=== PATIENT | female | born 1940 | race American Indian/Alaskan Native ===

== ENCOUNTER 2017-07-01 10:10 | Outpatient (CLI) | payer MEDICARE | END 2017-07-01 10:11 | disposition home or self-care (01) | LOC: LABHHL 10:10 | PROVIDERS: ATTEND Surgery | DX: C50.912 Malignant neoplasm of unspecified site of left female breast (principal) | CPT/HCPCS: 88305; 88342; 88361 ==

== ENCOUNTER 2017-07-21 11:19 | Outpatient (CLI) | payer MEDICARE ==
--- NOTE | 2017-07-21 15:31 | PET Report ---
PET SB TO MT INITIAL: HISTORY: Left breast cancer, initial staging. TECHNIQUE: 16.1 millicuries F-18 FDG was administered intravenously. Noncontrast CT images and PET images were obtained from the skull base to the proximal thighs. Fused images were reviewed on a workstation. The patient's blood glucose level measured 93. COMPARISON: None. FINDINGS: BRAIN: physiologic FDG uptake in the imaged brain. NECK: physiologic FDG uptake. CHEST WALL: An approximate 3.2 cm mass is identified in the lateral left breast with Max SUV measuring 11.6. MEDIASTINUM: physiologic FDG uptake. LUNGS: physiologic FDG uptake. PLEURA/PERICARDIUM: physiologic FDG uptake. THORACIC LYMPH NODES: There is a solitary enlarged left axillary lymph node measuring 2.8 x 1.9 cm with Max SUV measuring 11.6. HEPATOBILIARY: physiologic FDG uptake. Mean liver SUV measures 4.4. PANCREAS: physiologic FDG uptake. SPLEEN: physiologic FDG uptake. ADRENAL GLANDS: physiologic FDG uptake. KIDNEYS/RENAL COLLECTING SYSTEMS: physiologic FDG uptake. BOWEL/MESENTERY: physiologic FDG uptake. PELVIC VISCERA: physiologic FDG uptake. ABDOMINAL/PELVIC LYMPH NODES: physiologic FDG uptake. MUSCULOSKELETAL: physiologic FDG uptake. IMPRESSION: 3.2 cm hypermetabolic left breast mass and a solitary enlarged hypermetabolic left axillary lymph node as described. No additional areas of abnormal metabolic activity are identified.
== END 2017-07-21 11:20 | disposition home or self-care (01) ==
LOC: PET 11:19
PROVIDERS: ATTEND Surgery
DX: C50.412 Malignant neoplasm of upper-outer quadrant of left female breast (principal); R59.9 Enlarged lymph nodes, unspecified; J18.9 Pneumonia, unspecified organism; I10 Essential (primary) hypertension; Z79.899 Other long term (current) drug therapy
CPT/HCPCS: 78815; 82962; A9552

== ENCOUNTER 2017-07-27 09:24 | Outpatient (CLI) | payer MEDICARE ==
[2017-07-27] MEDS ORDERED: FLUSH HEPARIN IV ONE ×2 (10:12→10:29)
--- NOTE | 2017-07-28 07:56 | Nuclear Medicine Report ---
NUCLEAR MEDICINE MUGA GATED CARDIAC SCAN History: Malignant neoplasm of left breast. Findings: First pass technique was utilized. Heart rate measures 52-53 beats per minutes. The planar images demonstrate no evidence for a focal wall motion abnormality. The cardiac ejection fraction measures 75-80%. IMPRESSION: The cardiac ejection fraction measures 75-80 %.
== END 2017-07-27 09:25 | disposition home or self-care (01) ==
LOC: NM 09:24
PROVIDERS: ATTEND Internal Medicine Hematology & Oncology
DX: C50.412 Malignant neoplasm of upper-outer quadrant of left female breast (principal); I10 Essential (primary) hypertension; F32.9 Major depressive disorder, single episode, unspecified; Z79.899 Other long term (current) drug therapy
CPT/HCPCS: 78472; A9560; J1642

== ENCOUNTER 2017-08-12 14:19 | Outpatient (CLI) | payer MEDICARE ==
--- NOTE | 2017-08-15 16:12 | Magnetic Resonance Report ---
BILATERAL BREAST MRI WITHOUT AND WITH CONTRAST: 08/12/17 14:19:00 CLINICAL: Newly diagnosed left breast cancer. Status post left ultrasound breast biopsy on 07/01/17 with pathologic diagnosis of invasive carcinoma NOS, Selena grade III. ER/VT negative and HER-2 positive with Ki-67 of 76%. Needle biopsy of a left axillary lymph node on the same day was negative for malignancy. COMPARISON:06/30/17 bilateral mammogram.. TECHNIQUE: Axial 1.0-mm T1 without, axial high resolution 2.0-mm T2 and axial 1.0-mm dynamic Vibrant high-resolution postcontrast T1 fat saturation sequences on a 1.5 Marcela magnet. The examination was performed with an 8 channel dedicated [place] breast coil. Post processing with CAD and subtraction was performed on an [employer] workstation. 19.0 cc of Multihance was injected without incident via a right antecubital vein 22-gauge INT for the contrast portion of the exam. Consent was obtained prior to the administration of the contrast. FINDINGS: Right: Minimal background parenchymal enhancement. No mass or suspicious enhancement. No suspicious right axillary or right internal mammary lymph nodes. Left: Minimal background parenchymal enhancement. The known cancer is an irregular enhancing mass in the upper-outer quadrant 11.5 cm from the nipple measuring 3.1 x 3.0 x 2.6 cm. It demonstrates heterogeneous enhancement with mixed kinetics, 260% peak enhancement and 1% type III washout. Lesion 2 is an oval relatively smooth enhancing mass in the upper-outer quadrant 5.4 cm from the nipple and 8 cm from the known cancer. It measures 4.8 x 3.8 x 3.3 mm and demonstrates heterogeneous enhancement with mixed kinetics, 181% peak enhancement and 17% type III washout. No other mass or suspicious enhancement. A 3.0 cm x 1.7 cm level I axillary lymph node correlates with the biopsy lymph node. The cortex measures 4 mm in maximum thickness. IMPRESSION: 1. A 3.1 cm in known left breast cancer and a second suspicious lesion in the same quadrant 8 cm posterior to the nipple. 2. No MRI correlate for highly suspicious segmental calcifications extending from the known cancer toward the nipple for it least 11 cm. These mammographic calcifications are highly suspicious for DCIS. 3. Negative right breast. 4. A single suspicious but biopsy proven benign left axillary lymph node and no other suspicious lymph nodes. RIGHT BI-RADS 1 -- Negative LEFT BI-RADS 6 -- Known Cancer
== END 2017-08-12 14:20 | disposition home or self-care (01) ==
LOC: SPVIMAG 14:19
PROVIDERS: ATTEND Surgery
DX: C50.412 Malignant neoplasm of upper-outer quadrant of left female breast (principal)
CPT/HCPCS: A9577; C8908; 77059

== ENCOUNTER 2017-09-06 14:51 | Outpatient (CLI) | payer OTHER | END 2017-09-06 14:52 | disposition home or self-care (01) | LOC: LABHHL 14:51 | PROVIDERS: ATTEND Surgery | DX: C50.912 Malignant neoplasm of unspecified site of left female breast (principal); R92.0 Mammographic microcalcification found on diagnostic imaging of breast | CPT/HCPCS: 88305; 88341; 88342 ==

== ENCOUNTER 2017-11-03 12:56 | Outpatient (CLI) | payer MEDICARE ==
--- NOTE | 2017-11-04 15:38 | PET Report ---
PET/CT:11/03/17 12:56:00 CLINICAL: Breast cancer restaging. RADIOPHARMACEUTICAL: 14.507mCi F18-FDG. COMPARISON: 07/21/17 PET/CT TECHNIQUE- Following intravenous injection of F-18 FDG and an approximately 60 minute uptake period, CT and PET images from the mid skull to the upper thighs were acquired with the patient in the fasted state. No contrast was administered. The CT protocol used for this PET CT study is designed for attenuation correction and anatomic localization of PET abnormalities. This property specialist CT is not desired to produce and cannot replace, mgict-bt-xmb-art diagnostic CT scans with specific imaging protocols for different body parts and indications. Plasma glucose at the time of this test: 103g/dl. The standardized uptake values (SUV) are normalized to patient body weight and indicate the highest activity concentration (SUV max) in a given disease site. FINDINGS: Brain--Physiologic FDG uptake in the visualized regions of the brain. Neck--Physiologic FDG uptake in mucosal structures. No mass or lymphadenopathy. Chest--Physiologic FDG uptake in mediastinal blood pool and myocardium. The previously described FDG avid left breast mass has resolved. A biopsy clip is identified at the site. A stable large left diaphragmatic hernia. Lungs--No abnormal uptake. No pulmonary nodule or mass. Pleura/pericardium--No abnormal uptake. Thoracic nodes--No abnormal uptake. The previously described FDG avid left axillary lymph node metastasis has resolved. Hepatobiliary--No abnormal uptake. Liver background SUV mean, as a reference for comparing FDG studies, is 3.0 compared to 6.1 on the last exam. No liver mass. Spleen--No abnormal uptake. Pancreas--No abnormal uptake. Adrenal Glands--No abnormal uptake. Kidneys/Ureters/Bladder--No abnormal uptake. Abdominopelvic Nodes--No abnormal uptake. Bowel/Peritoneum/Mesentery--No abnormal uptake. Pelvic organs--No abnormal uptake. Bones/Soft Tissues--No abnormal uptake. No suspicious bone lesions. IMPRESSION-1. Positive response to therapy with resolution of the left breast mass and left axillary rosey metastasis. 2. No evidence of pulmonary, rosey, hepatic or skeletal metastasis.
== END 2017-11-03 12:57 | disposition home or self-care (01) ==
LOC: PET 12:56
PROVIDERS: ATTEND Surgery
DX: C50.412 Malignant neoplasm of upper-outer quadrant of left female breast (principal); I10 Essential (primary) hypertension; J18.9 Pneumonia, unspecified organism; K21.9 Gastro-esophageal reflux disease without esophagitis; M19.90 Unspecified osteoarthritis, unspecified site; F32.9 Major depressive disorder, single episode, unspecified
CPT/HCPCS: 78815; 82962; A9552

== ENCOUNTER → 2017-12-06 | Outpatient (CLI) | payer MEDICARE | END | disposition home or self-care (01) | LOC: ECHO 11:01 | PROVIDERS: ATTEND Surgery | DX: C50.412 Malignant neoplasm of upper-outer quadrant of left female breast (principal); I10 Essential (primary) hypertension; K21.9 Gastro-esophageal reflux disease without esophagitis; M19.90 Unspecified osteoarthritis, unspecified site; Z88.6 Allergy status to analgesic agent | CPT/HCPCS: 93306 ==

== ENCOUNTER 2017-12-27 14:54 | Outpatient (CLI) | payer MEDICARE ==
[2017-12-27 15:50] LABS: INR 0.98 (0.87-1.13)
[2017-12-27 15:51] LABS: Partial Thromboplastin Time 26.8 Sec. (24.2-36.6)
[2017-12-27 15:53] LABS: BUN/Creatinine Ratio 13; Blood Urea Nitrogen 10 mg/dL (7-17); Calcium 9.3 mg/dL (8.4-10.2); Hemolysis Index 12
--- NOTE | 2017-12-27 17:47 | Cat Scan Report ---
FINAL REPORT PROCEDURE: CT angiogram chest with contrast. TECHNIQUE: Computerized tomographic angiography of the chest was performed after the IV injection of iodinated nonionic contrast including image processing. The image data was postprocessed using 2-dimensional multiplanar reformatted (MPR) and 3-dimensional (MIP and/or volume rendered) techniques. HISTORY: Abnormal coagulation profile COMPARISON: CT angiogram chest 11/20/2015. FINDINGS: The trachea and central bronchi appear normal. There is a small noncalcified nodule in the apex of the right upper lobe. This measures 4.9 millimeters. This appears similar to the previous study. Since there has been no change in 2 years, no further evaluation is necessary. There is mild subsegmental atelectasis in the dependent portions of both lower lobes. The lungs are otherwise clear. There is moderate elevation of the left hemidiaphragm. There is a posterior right diaphragmatic hernia containing abdominal fat. This is consistent with a foramen of Bochdalek hernia. The thoracic aorta has a normal caliber without evidence of dissection. The pulmonary arteries enhance normally. There are no signs of pulmonary embolism. There is no mediastinal adenopathy. The heart size is normal. There are no pleural effusions. The adrenal glands are not enlarged. The thoracic skeleton appears intact. IMPRESSION: No evidence of pulmonary embolism nor aortic dissection. Stable, benign nodule in the right upper lobe.
--- NOTE | 2017-12-29 08:32 | Vascular Lab Report ---
LOWER EXTREMITY VENOUS DUPLEX: REASON FOR EXAM: Elevated d-dimer. DVT. History of cancer. COMMENTS ON THE RIGHT: All veins visualized are freely compressible without evidence of internal echogenicity. Flow is spontaneous and phasic throughout. COMMENTS ON THE LEFT: All veins visualized are freely compressible without evidence of internal echogenicity. Flow is spontaneous and phasic throughout. IMPRESSION: No evidence of acute or chronic deep venous thrombosis in either lower extremity.
== END 2017-12-27 14:55 | disposition home or self-care (01) ==
LOC: VAS 14:54
PROVIDERS: ATTEND Internal Medicine
DX: R79.1 Abnormal coagulation profile (principal); I10 Essential (primary) hypertension; J44.9 Chronic obstructive pulmonary disease, unspecified; K21.9 Gastro-esophageal reflux disease without esophagitis; M19.90 Unspecified osteoarthritis, unspecified site; Z90.710 Acquired absence of both cervix and uterus
CPT/HCPCS: 36415; 71275; 80048; 85610; 85730; 93005; 93010; 93970; Q9967

== ENCOUNTER 2018-01-09 05:42 | Observation (INO) | payer MEDICARE, OTHER ==
[2017-12-15 12:58] LABS: Basophils % (Auto) 0.9 % (0.0-1.8); Eosinophils # (Auto) 0.1 K/mm3 (0.0-0.4); Eosinophils % (Auto) 1.2 % (0.0-4.3); Hematocrit 30.8 % (30.3-42.9); Hemoglobin 10.2 gm/dl (10.1-14.3); Lymphocytes # (Auto) 1.8 K/mm3 (1.2-5.4); Mean Corpuscular HGB Conc 33 % (30-34); Mean Corpuscular Hemoglobin 33 pg (28-32); Mean Corpuscular Volume 100 fl (79-97); Monocytes # (Auto) 0.3 K/mm3 (0.0-0.8); Monocytes % (Auto) 6.6 % (0.0-7.3); Platelet Count 205 K/mm3 (140-440); Red Blood Count 3.07 M/mm3 (3.65-5.03); Red Cell Distribution Width 15.2 % (13.2-15.2)
--- NOTE | 2017-12-15 13:03 | Anesthesia Consultation ---
Anesthesia Consult and Med Hx Date of service: 12/15/17 - Airway Anesthetic Teeth Evaluation: Poor ROM Head & Neck: Adequate Mental/Hyoid Distance: Adequate Mallampati Class: Class III Intubation Access Assessment: Probably Good - Pulmonary Exam CTA: Yes - Cardiac Exam Cardiac Exam: RRR - Pre-Operative Health Status ASA Pre-Surgery Classification: ASA3 Proposed Anesthetic Plan: General Nerve Block: Pec Block - Pulmonary Hx Smoking: Yes (FOR 10YEARS QUIT 40 YEARS AGO) SOB: Yes COPD: Yes Hx Pneumonia: Yes - Cardiovascular System Hx Hypertension: Yes (10 YEARS) Hx Coronary Artery Disease: No - Central Nervous System Hx Seizures: No CVA: No Hx Psychiatric Problems: Yes - Gastrointestinal Hx Gastroesophageal Reflux Disease: Yes - Endocrine Hx Renal Disease: Yes (STAGE II) - Hematic Hx Anemia: Yes - Other Systems Hx Alcohol Use: No Hx Substance Use: No Hx Cancer: Yes - Additional Comments Anesthesia Medical History Comments: EF-55-60%. Pt. ambulates with walker.
[2017-12-15 13:13] LABS: Alanine Aminotransferase 12 units/L (7-56); Albumin 4.3 g/dL (3.9-5); BUN/Creatinine Ratio 19; Blood Urea Nitrogen 19 mg/dL (7-17); Calcium 9.5 mg/dL (8.4-10.2); Hemolysis Index 10
[~2018-01-09 05:42] MED LIST: DECADRON IV NR; LACTATED RINGERS 1,000 ML IV SCH; SUBLIMAZE IV PRN; VERSED IV NR
[2018-01-09] MEDS ORDERED: ANCEF/STERILE WATER 2 GM/20 ML IV NR (07:00)
[2018-01-09] MEDS ORDERED: XYLOCAINE MPF 2% ONE (07:14)
[2018-01-09] MEDS ORDERED: DILAUDID ONE ×2 (07:15→13:06)
[2018-01-09] MEDS ORDERED: DIPRIVAN 10 MG/ML IV ONE (07:16)
[2018-01-09] MEDS ORDERED: SUBLIMAZE ONE ×3 (07:20→10:46)
[2018-01-09] MEDS ORDERED: MARCAINE 0.5% INFILTRATI ONE (07:21)
[2018-01-09] MEDS ORDERED: ZEMURON IV ONE (07:51)
[2018-01-09] MEDS ORDERED: PROAIR IH ONE (07:53)
[2018-01-09] MEDS ORDERED: TYLENOL PO PRN ×2 (08:11→12:31)
[2018-01-09] MEDS ORDERED: ZOFRAN IV PRN ×2 (08:11→12:31)
[2018-01-09] MEDS ORDERED: TORADOL IV PRN (08:11)
[2018-01-09] MEDS ORDERED: DEMEROL IV PRN (08:11)
[2018-01-09] MEDS ORDERED: PERCOCET 5/325 PO PRN (08:11)
[2018-01-09] MEDS ORDERED: NARCAN 0.4 MG/1 ML IV PRN (08:11)
[2018-01-09] MEDS ORDERED: METHYLENE BLUE ONE (08:36)
[2018-01-09] MEDS ORDERED: NACL P/F VIAL (10 ML) 10 ML ONE (08:37)
--- NOTE | 2018-01-09 08:44 | Anesthesia Day of Surgery ---
Anesthesia Day of Surgery - Day of Surgery Patient Examined: Yes Patient H&P Reviewed: Yes Patient is NPO: Yes
[2018-01-09] MEDS ORDERED: METHYLENE BLUE IV ONE (09:12)
[2018-01-09] MEDS ORDERED: NACL P/F VIAL (10 ML) INFILTRATI ONE (09:13)
[2018-01-09] MEDS ORDERED: DECADRON ONE (09:27)
[2018-01-09] MEDS ORDERED: ZOFRAN ONE (09:28)
[2018-01-09] MEDS ORDERED: BLOXIVERZ ONE (09:28)
[2018-01-09] MEDS ORDERED: ROBINUL ONE (09:29)
[2018-01-09] MEDS ORDERED: WATER FOR IRRIG STERILE IR ONE (09:45)
--- NOTE | 2018-01-09 11:22 | Mammography Report ---
LEFT MASTECTOMY SPECIMEN RADIOGRAPH : 01/09/18 05:42:00 CLINICAL: Left breast cancer. FINDINGS: Malignant calcifications and 2 biopsy clips are identified within the specimen. IMPRESSION: Excision of the known cancers.
--- NOTE | 2018-01-09 12:28 | Operative Report ---
Operative Report Operative Report: Date of Service: January 09, 2018 Preoperative diagnosis: Multicentric left breast cancer of the upper outer quadrant Postoperative diagnosis: Same Procedure: Left total mastectomy and sentinel lymph node biopsy Surgeon: Brittany Baxter M.D. Anesthesia: Gen. Findings: Radiograph specimen left mastectomy with 2 clips present; 3 SLNs and negative for malignancy on frozen, one SLN with biopsy site changes Complications: None Drains: 1 Estimated blood loss: Minimal Disposition: PACU in good condition Indications for operative procedure: This is a 77-year-old lady with multicentric left breast cancer of the upper inner quadrant IDCA grade 3 [id number] ER/CO negative and Her-2 positive. She completed neoadjuvant chemotherapy and recommendations were to proceed with left mastectomy given multicentric breast cancer and SLNB with possible axillary lymph node dissetion. Patient wished to proceed with the above procedure. Procedure in detail: Anesthesia placed left pectoral muscle block prior to going to the operating room. The patient was taken to the operating room and was placed supine. Gen. anesthesia was administered. Left nipple was injected with radioisotope and 1 cc of methlene blue mixed with 1 cc of saline. Timeout was performed. Typical mastectomy incision markings were made of left breast. Left SLN hot spot was marked. Attention was taken towards the left breast. First began raising of the superior flap to the level of the clavicle superiorly and posteriorly to the pectoralis muscle. Followed by raising of the medial flap to the level of the sternum and posteriorly to the pectoralis muscle. Followed by raising of the lateral flap to the level of the latissimus dorsi muscle and taken down posteriorly. The gamma probe was inserted into the axilla. The area of location of SLN was identified. the axillary fasica as opended. 3 SLNs were identified and sent to pathology, biopsy clip was noted of first SLN. Frozen section from all SLNs negative for malignancy and biopsy site changes noted. Then proceeded with raising of the inferior flap to the level of the inframammary fold taken posterior to the pectoralis muscle. The mastectomy/ breast was removed from the pectoralis muscle without incident. The specimen was appropriately marked and sent to radiology and pathology. Radiograph specimen with 2 clips presnt. Hemostasis was obtained with the bovie cautery. A 19 arabic drain was placed and sutured to the skin. Left chest wall was irrigated and suctioned. The subcutaneous tissues were approximated and closed using interrupted 3-0 Vicryl followed by closing of the skin using interrupted 4 -0 Monocryl and skin affix. She tolerated surgery very well and was awaken from anesthesia and transported to PACU in good condition.
[2018-01-09] MEDS ORDERED: REGLAN PO PRN (12:31)
[2018-01-09] MEDS ORDERED: SODIUM CHLORIDE FLUSH SYRINGE 10 ML IV PRN (12:31)
[2018-01-09] MEDS ORDERED: BENADRYL PO PRN (12:31)
--- NOTE | 2018-01-09 12:31 | Short Stay Summary ---
Short Stay Documentation Date of service: 01/09/18 - History H&P: obtained from office - Allergies and Medications Current Medications: Allergies ibuprofen Allergy (Verified 12/14/17 14:28) Swelling Home Medications Medication Instructions Recorded Confirmed Last Taken Type Famotidine [Pepcid] 20 mg PO BID 11/20/15 12/15/17 01/09/18 04:30 History Gabapentin [Neurontin] 600 mg PO TID 11/20/15 12/15/17 01/09/18 04:30 History Oxycodone HCl/Acetaminophen 1 each PO Q6HR PRN 11/20/15 12/15/17 01/09/18 04:30 History [Percocet 7.5/325 mg] Potassium Chloride [K-Dur] 20 meq PO BID 11/20/15 12/15/17 01/09/18 04:30 History Trazodone HCl [traZODone] 500 mg PO QHS 11/20/15 12/15/17 01/09/18 04:30 History Atenolol [Tenormin] 50 mg PO QDAY #30 tablet 11/21/15 12/15/17 01/09/18 04:30 Rx Chlorthalidone [Thalitone] 25 mg PO QDAY tablet 11/21/15 12/15/17 Unknown Rx Citalopram [celeXA] 10 mg PO QDAY tablet 11/21/15 12/15/17 01/09/18 04:30 Rx Hydralazine HCl [Apresoline TAB] 50 mg PO BID #60 tablet 11/21/15 12/15/1701/09 04:30 Rx Meclizine [Antivert] 25 mg PO TID PRN #20 tablet 11/21/15 12/15/17 01/09/18 04: 30 Rx Active Medications Acetaminophen (Tylenol) 650 mg PO ONCE PRN PRN Reason: Pain, Mild (1-3) Cefazolin Sodium (Ancef/Sterile Water 2 Gm/20 Ml) 2 gm IV PREOP NR Stop: 01/09/18 23:59 Fentanyl (Sublimaze) 50 mcg IV ONCE PRN PRN Reason: Pain, Moderate (4-6) Hydromorphone HCl (Dilaudid) 0.25 mg IV Q10MIN PRN PRN Reason: Pain, Moderate (4-6) Stop: 01/09/18 20:00 Lactated Ringer's (Lactated Ringers) 1,000 mls @ 75 mls/hr IV DIRECT KELSIE Last Admin: 01/09/18 07:10 Dose: 75 mls/hr Ketorolac Tromethamine (Toradol) 15 mg IV ONCE PRN PRN Reason: Pain, Mild (1-3) Meperidine HCl (Demerol) 25 mg IV ONCE PRN PRN Reason: Shivering Stop: 01/09/18 20:00 Naloxone HCl (Narcan 0.4 Mg/1 Ml) 0.1 mg IV Q2MIN PRN PRN Reason: Res Rate </= 8 or 02 SAT < 92% Stop: 01/09/18 20:00 Ondansetron HCl (Zofran) 4 mg IV ONCE PRN PRN Reason: Nausea And Vomiting Stop: 01/09/18 20:00 Oxycodone/Acetaminophen (Percocet 5/325) 1 tab PO ONCE PRN PRN Reason: Pain, Moderate (4-6) Stop: 01/09/18 20:00 - Brief post op/procedure progress note Date of procedure: 01/09/18 Pre-op diagnosis: Multicentric left breast cancer of the UOQ Post-op diagnosis: same Procedure: Left total mastectomy and SLNB Anesthesia: GETA Findings: 3 SLNs and negative for malignancy; radiograph specimen of left mastectomy with clips present Surgeon: REAGAN LOVE Estimated blood loss: 50-100ml Pathology: list (left mastectomy; 3 SLNS) Specimen disposition: to lab Condition: stable - Disposition Condition at discharge: Good Disposition: [id number]/TX-02 SHRT-TRM GEN HOSP IP Short Stay Discharge Plan Activity: other (no heavy lifting) Diet: diabetic Wound: other (keep incision clean and dry; may shower in 48 hours; no baths, pools or lakes; wear breast binder) Follow up with: NIKO HOWARD MD [Primary Care Provider] - 7 Days REAGAN LOVE MD [Staff Physician] - 7 Days
[2018-01-09] MEDS ORDERED: LACTATED RINGERS 1,000 ML IV SCH (13:00)
[2018-01-09] MEDS: DILAUDID IV PRN ×4 (13:05→13:40)
[2018-01-09] MEDS: MORPHINE IV PRN ×2 (15:47→20:11)
[2018-01-09] MEDS: PROVENTIL IH SCH (16:55)
--- NOTE | 2018-01-09 18:52 | Post Anesthesia Evaluation ---
- Post Anesthesia Evaluation Patient Participated: Yes Airway Patent: Yes Stable Respiratory Function: Yes Nausea/Vomiting: No Temp > 96.8F: Yes Pain Manageable: Yes Adequeate Hydration: Yes Anesthesia Complications: No Block Receding Appropriately: No (anesthetic block was placed for postoperative pain and is functioning as expected) Patient on Ventilator: No
[2018-01-09] MEDS: COLACE PO SCH (21:44)
[2018-01-09] MEDS: PERCOCET 5/325 PO PRN (22:58)
[2018-01-10] MEDS: MORPHINE IV PRN ×2 (02:42→08:32)
[2018-01-10] MEDS: PERCOCET 5/325 PO PRN (05:10)
[2018-01-10 08:12] VITALS: BP 138/49
[2018-01-10] MEDS: PROVENTIL IH SCH ×3 (09:09→09:12)
--- NOTE | 2018-01-10 09:54 | Progress Note ---
Assessment and Plan This is a 77 year old lady with multicentric left breast cancer of the upper outer quadrant, IDCA grade 3 [id number] Her-2 positive. POD #1 left mastectomy with SLNB. No acute events overnight. 1. Pain in good control. Incision healing well. 2. OOB 3. SUHAS drain education. 4. D/C home later today. Subjective Date of service: 01/10/18 Principal diagnosis: Left breast cancer [id number] ER/CT negative, Her-2 positive Interval history: This is a 77 year old lady with multicentric left breast cancer of the upper outer quadrant, IDCA grade 3 [id number] Her-2 positive. POD #1 left mastectomy with SLNB. No acute events overnight. Objective - Constitutional Vitals: Vital Signs - 12hr 18 18 01/10/18 22:58 23:58 00:00 Temperature 98.8 F Pulse Rate 79 Pulse Rate [ Anterior Bilateral Throughout] Respiratory 18 18 16 Rate Respiratory Rate [Anterior Bilateral Throughout] Blood Pressure 136/68 [Left] O2 Sat by Pulse 96 Oximetry 01/10/18 01/10/18 01/10/18 00:45 00:55 02:42 Temperature Pulse Rate Pulse Rate [ 76 74 Anterior Bilateral Throughout] Respiratory 20 Rate Respiratory 16 16 Rate [Anterior Bilateral Throughout] Blood Pressure [Left] O2 Sat by Pulse Oximetry 01/10/18 01/10/18 01/10/18 05:05 05:10 08:11 Temperature 99.2 F 98.6 F Pulse Rate 83 82 Pulse Rate [ Anterior Bilateral Throughout] Respiratory 16 18 18 Rate Respiratory Rate [Anterior Bilateral Throughout] Blood Pressure 117/50 138/49 [Left] O2 Sat by Pulse 96 96 Oximetry 01/10/18 01/10/18 01/10/18 08:32 09:12 09:20 Temperature Pulse Rate Pulse Rate [ 74 76 Anterior Bilateral Throughout] Respiratory 18 Rate Respiratory 12 14 Rate [Anterior Bilateral Throughout] Blood Pressure [Left] O2 Sat by Pulse Oximetry General appearance: Present: no acute distress - EENT Eyes: PERRL, EOM intact ENT: hearing intact, clear oral mucosa Ears: bilateral: normal - Neck Neck: supple, normal ROM - Respiratory Respiratory effort: normal Respiratory: bilateral: CTA - Breasts Breasts: other (left chest incision c/d/i; skin well perfused; SUHAS to bulb suction; no hematoma) - Cardiovascular Rhythm: regular Extremities: no ischemia, No edema, normal temperature, normal color, Full ROM - Gastrointestinal General gastrointestinal: Present: soft, non-tender, non-distended Rectal Exam: deferred - Genitourinary Female genitourinary: deferred - Integumentary Integumentary: clear, warm, dry - Neurologic Neurologic: CNII-XII intact, moves all extremities - Psychiatric Psychiatric: appropriate mood/affect, intact judgment & insight, memory intact, cooperative - Labs CBC & Chem 7: 12/15/17 12:30 12/15/17 12:30
[2018-01-10] MEDS: COLACE PO SCH (10:15)
[2018-01-10] MEDS ORDERED: PERCOCET 5/325 PO PRN (10:30)
== END 2018-01-10 15:00 | disposition home or self-care (01) ==
LOC: OR 05:42 → 4A 12:31 → OB 12:45
PROVIDERS: ADMIT Surgery; ATTEND Surgery
DX: C50.412 Malignant neoplasm of upper-outer quadrant of left female breast (principal); I12.9 Hypertensive chronic kidney disease with stage 1 through stage 4 chronic kidney disease, or unspecified chronic kidney disease; N18.2 Chronic kidney disease, stage 2 (mild); J44.9 Chronic obstructive pulmonary disease, unspecified; K21.9 Gastro-esophageal reflux disease without esophagitis; Z87.891 Personal history of nicotine dependence
CPT/HCPCS: 19303; 36415; 38525; 38792; 64450; 76098; 78800; 80053; 85025; 88307; 88331; 88342; 94640; 96374; 96375; 96376; A9541; G0378; J0690; J1100; J1170; J2270; J2405; J2704; J2710; J3010; J7120; Q9968; 88309; 88333

== ENCOUNTER 2018-06-26 10:10 | Outpatient (CLI) | payer MEDICARE ==
[2018-06-26] MEDS ORDERED: FLUSH HEPARIN IV ONE (11:03)
--- NOTE | 2018-06-27 07:54 | Nuclear Medicine Report ---
NUCLEAR MEDICINE MUGA GATED CARDIAC HISTORY: Malignant neoplasm of upper outer quadrant of left breast. TECHNIQUE: 20 mCi of technetium 99m tagged red blood cells were administered. First pass technique was utilized. Gated planar images in the CZECH projection. FINDINGS: Planar images demonstrate no evidence for left ventricular wall motion abnormality. The average left ventricular ejection fraction measures 68%. For comparison, the average left ventricular ejection fraction measured 64.9% on 03/24/18.
== END 2018-06-26 10:11 | disposition home or self-care (01) ==
LOC: NM 10:10
PROVIDERS: ATTEND Internal Medicine Hematology & Oncology
DX: C50.412 Malignant neoplasm of upper-outer quadrant of left female breast (principal); I10 Essential (primary) hypertension; J44.9 Chronic obstructive pulmonary disease, unspecified; K21.9 Gastro-esophageal reflux disease without esophagitis; M19.90 Unspecified osteoarthritis, unspecified site; Z90.710 Acquired absence of both cervix and uterus; Z87.891 Personal history of nicotine dependence
CPT/HCPCS: 78472; A9560; J1642

== ENCOUNTER 2018-10-09 13:18 | Emergency (ER) | payer MEDICARE ==
--- NOTE | 2018-10-09 13:39 | Emergency Department Report ---
Blank Doc - Documentation Documentation: This is a 78-year-old female that presents left sided jaw and left arm pain. Also stated has chest pain. Denies any SOB. This initial assessment/diagnostic orders/clinical plan/treatment(s) is/are subject to change based on patient's health status, clinical progression and re- assessment by fellow clinical providers in the ED. Further treatment and workup at subsequent clinical providers discretion. Patient/guardians urged not to elope from the ED as their condition may be serious if not clinically assessed and managed. Initial orders include: 1- Patient sent to MAIN ED for further evaluation and treatment 2- labs 3- EKG 4- CXR
[2018-10-09 13:42] VITALS: BP 151/49
--- NOTE | 2018-10-09 15:27 | XRay Report ---
ROUTINE CHEST, TWO VIEWS: HISTORY: chest pain. Normal heart size and pulmonary vessels. The lungs are clear. Eventration or elevation of the left hemidiaphragm is noted. No pleural effusion or pneumothorax. Right [id number] terminates in the lower SVC. IMPRESSION: No acute process. Elevated left hemidiaphragm.
[2018-10-09 18:03] LABS: Basophils % (Auto) 0.5 % (0.0-1.8); Eosinophils # (Auto) 0.1 K/mm3 (0.0-0.4); Eosinophils % (Auto) 2.7 % (0.0-4.3); Hematocrit 32.2 % (30.3-42.9); Hemoglobin 10.8 gm/dl (10.1-14.3); Lymphocytes # (Auto) 1.1 K/mm3 (1.2-5.4); Mean Corpuscular HGB Conc 34 % (30-34); Mean Corpuscular Volume 100 fl (79-97); Monocytes # (Auto) 0.2 K/mm3 (0.0-0.8); Monocytes % (Auto) 7.4 % (0.0-7.3); Platelet Count 171 K/mm3 (140-440); Red Blood Count 3.21 M/mm3 (3.65-5.03); Red Cell Distribution Width 13.7 % (13.2-15.2)
[2018-10-09 18:09] LABS: BUN/Creatinine Ratio 14; Blood Urea Nitrogen 13 mg/dL (7-17); Calcium 9.4 mg/dL (8.4-10.2); Hemolysis Index 0
[2018-10-09 18:12] LABS: INR 1.06 (0.87-1.13)
[2018-10-09 18:13] LABS: Partial Thromboplastin Time 28.1 Sec. (24.2-36.6)
== END 2018-10-09 19:37 | disposition left against medical advice (07) ==
LOC: ED 13:18
DX: M79.602 Pain in left arm (principal); R68.84 Jaw pain; R07.89 Other chest pain; Z53.21 Procedure and treatment not carried out due to patient leaving prior to being seen by health care provider
CPT/HCPCS: 36415; 71046; 80048; 82962; 84484; 85025; 85610; 85730; 93005; 93010

== ENCOUNTER 2018-11-14 10:05 | Outpatient (CLI) | payer MEDICARE ==
[2018-11-14] MEDS ORDERED: FLUSH HEPARIN IV ONE (10:51)
--- NOTE | 2018-11-14 12:08 | Nuclear Medicine Report ---
NUCLEAR MEDICINE MULTIPLE GATED ACQUISITION (MUGA) HISTORY: Breast cancer, patient on chemotherapy. COMPARISON: Previous exams on 06/26/2018 and 03/24/2018 TECHNIQUE: Ejection fraction was calculated based upon a best septal view utilizing a multigated ECG acquisition after labeling of the patients red blood cells with in vitro technique. Tc99m tagged red blood cells were administered intravenously. A view 45 degrees anterior from the best septal view is also obtained. Cine loop, phase, and amplitude images are all provide for review. RADIOPHARMACEUTICAL: 20 mCi of [id number] RBC's. FINDINGS: Left Ventricular Ejection Fraction: 65.3 % Wall motion: No significant abnormality. Phase/amplitude images: No significant abnormalities. No pericardial effusion suggested. IMPRESSION: 1. Normal left ventricular ejection fraction of 65.3 %. 2. No significant change from prior. Signer Name: Osmany Michele MD Signed: 11/14/2018 12:03 PM Workstation Name: [id number]
== END 2018-11-14 10:06 | disposition home or self-care (01) ==
LOC: NM 10:05
PROVIDERS: ATTEND Internal Medicine Hematology & Oncology
DX: Z51.12 Encounter for antineoplastic immunotherapy (principal); C50.412 Malignant neoplasm of upper-outer quadrant of left female breast; I10 Essential (primary) hypertension; J44.9 Chronic obstructive pulmonary disease, unspecified; K21.9 Gastro-esophageal reflux disease without esophagitis; D63.8 Anemia in other chronic diseases classified elsewhere; R19.7 Diarrhea, unspecified; D50.8 Other iron deficiency anemias; E66.01 Morbid (severe) obesity due to excess calories; D51.9 Vitamin B12 deficiency anemia, unspecified; R29.898 Other symptoms and signs involving the musculoskeletal system; Z90.710 Acquired absence of both cervix and uterus; Z92.21 Personal history of antineoplastic chemotherapy
CPT/HCPCS: 78472; A9560; J1642

== ENCOUNTER 2020-10-14 13:41 | Outpatient (CLI) | payer MEDICARE ==
--- NOTE | 2020-10-14 14:47 | Mammography Report ---
BILATERAL DIGITAL SCREENING MAMMOGRAM WITH CAD HISTORY: Screening mammogram, status post left breast mastectomy. TECHNIQUE: Routine digital mammographic imaging performed. This examination was interpreted with parvez cruz benefit of Computer-aided Detection analysis. COMPARISON: 09/20/2019, 07/10/2018, 11/14/2017. FINDINGS: Breast Density: scattered fibroglandular appearance of the breast tissue. Digital CC and MLO views demonstrate no mammographic evidence of malignancy. Scattered coarse and cintia cent centered calcifications appear benign bilaterally. Right chest Port-A-Cath is partially visualiz ed. IMPRESSION: No mammographic evidence of malignancy. If the clinical examination remains stable, recommend bilate ral mammogram in approximately one year. BIRADS 2: Benign Finding(s). FURTHER INFORMATION: According to the [employer], yearly mammograms are recommend ed starting at age 40 and continuing as long as a woman is in good health. Clinical Breast Exams shou ld be part of a periodic health exam-about every 3 years for women in their 20s and 30s and every yea r for women 40 and over. Breast self exam is an option for women starting in their 20s. Any breast ch osvaldo noted on a breast self exam should be reported promptly to the patient's healthcare provider. Br east MRI is recommended for women with an approximately 20-25% or greater lifetime risk of breast can cer, including women with a strong family history of breast or ovarian cancer and women who have been treated for Hodgkin's disease. A negative Mammography report should not discourage follow up or biopsy of a clinically significant f inding and/or abnormality. Dense breast tissue may obscure small neoplasms. The patient will be entered into a reminder system with a target due date for the next screening mamm ogram. A negative Mammography report should not discourage follow up or biopsy of a clinically significant finding and/or abnormality. Dense breast tissue may obscure small neoplasms. The patient will be entered into a reminder system with a target due date for the next screening mamm ogram. Screening Signer Name: Raman Maravilla MD Signed: 10/14/2020 2:42 PM Workstation Name: [id number]
== END 2020-10-14 13:42 | disposition home or self-care (01) ==
LOC: SPVWC 13:41
PROVIDERS: ATTEND Surgery
DX: Z12.31 Encounter for screening mammogram for malignant neoplasm of breast (principal); Z90.12 Acquired absence of left breast and nipple